=== PATIENT | male | born 1975 | race Two or more races ===

== ENCOUNTER 2025-03-03 18:07 | Emergency (ER) | payer OTHER ==
[~2025-03-03] VITALS: Ht 182.9 cm; Wt 109.8 kg
[2025-03-03] MEDS ORDERED: 0.9 % SODIUM CHLORIDE 1,000 ML IV ONE (20:15)
[2025-03-03] MEDS ORDERED: INSULIN REGULAR, HUMAN 1,000 UNIT/10 ML UNITS IV ONE (20:15)
[2025-03-03 22:49] LABS: BASO % 0.7 % (0.1-1.2); EOS % 1.6 % (0.7-7.0); HEMATOCRIT 40.6 % (40.1-51.0); HEMOGLOBIN 13.9 g/dL (13.7-17.5); LYMPH # 2.89 (1.18-3.74); MEAN CORPUSCULAR HEMOGLOBIN 26.8 pg (25.6-32.2); MONO # 0.53 (0.24-0.82); MONO % 8.6 % (4.7-12.5); NEUT # 2.57 (1.56-6.13); NEUT % 41.8 % (34.0-71.1); PLATELET COUNT 260 K/uL (163-369); RED BLOOD COUNT 5.18 M/uL (4.63-6.08); RED CELL DISTRIBUTION WIDTH 12.5 % (11.6-14.4)
[2025-03-03 23:13] LABS: ALBUMIN 4.2 gm/dL (3.4-5.0); BILIRUBIN TOTAL 0.52 mg/dL (0.3-1.2); CALCIUM 9.3 mg/dL (8.5-10.1); CREATININE SERUM 1.07 mg/dL (0.70-1.30); GFR 73.15; GLOBULINA 3.7 G/DL (2.4-3.5); POTASSIUM 4.24 mEq/L (3.5-5.1); TOTAL PROTEIN 7.9 gm/dL (6.4-8.2)
[2025-03-03 23:26] LABS: URINE APPEARANCE Clear; URINE BILIRRUBIN Negative (NEGATIVE); URINE BLOOD Trace; URINE COLOR Yellow; URINE LEUKOCYTE Negative; URINE NITRATE Negative; URINE PROTEIN Negative (NEGATIVE)
[2025-03-03 23:29] LABS: URINE BACTERIA 6.1 uL (0.0-1933); URINE EPITHELIAL CELLS 6.1 uL (0.0-38.8); URINE WBC 3.9 uL (0.0-23.2)
[2025-03-03 23:50] LABS: URINE CAST 0.44 uL (0.0-1.40); URINE GLUCOSE >=1000 MG/DL (NEGATIVE); URINE KETONE 80 (NEGATIVE)
== END 2025-03-04 00:50 | disposition home or self-care (01) ==
LOC: ER 18:07
PROVIDERS: General Practice
DX: E11.65 Type 2 diabetes mellitus with hyperglycemia (principal)